=== PATIENT | male | born 1960 | race Caucasian/White ===

== ENCOUNTER 2020-05-07 09:02 | Emergency (ER) | payer OTHER, SELFPAY ==
--- NOTE | 2020-05-07 09:12 | ED.GENADULT ---
HPI - General Adult General Chief complaint: Extremity Injury, Lower Stated complaint: left leg injury Time Seen by Provider: 05/07/20 09:11 Source: patient Mode of arrival: Wheelchair Limitations: no limitations History of Present Illness HPI narrative: Patient is a 59-year-old male who is here for evaluation of a left leg/knee injury. He states that this morning he was walking on some area of gravel/stones. It was somewhat wet because of some light range this morning. He states that he slipped and fell. His knee was bent at the time and all of his weight came down on his bed knee. Since that time he has had very difficult time walking and cannot lift his left leg. Did not hit his head. Review of Systems Constitutional Constitutional: Denies fever(s) Cardiovascular Cardiovascular: Denies chest pain and Denies dyspnea Respiratory Respiratory: Denies dyspnea Musculoskeletal Musculoskeletal: Denies tingling Comments: Left knee pain Integumentary/Breasts Skin/Breast: Denies rash Neurologic Neurologic: Denies tingling Hematologic/Lymphatic On Anticoagulants: No Allergic/Immunologic Allergic/Immunologic: Denies urticaria Patient History Medical History Healthy adult Social History lives independently: Yes Exam Initial Vital Signs Initial Vital Signs: Vital Signs Temperature 97.4 F L 05/07/20 09:16 Pulse Rate 74 05/07/20 09:16 Respiratory Rate 16 05/07/20 09:16 Blood Pressure 178/88 H 05/07/20 09:16 Pulse Oximetry 98 05/07/20 09:16 Const General: cooperative Limitations: mental status not altered Skin Lesions: no lesions Rashes: no rashes Neuro Sensory Exam: no sensory deficits noted Extrem Other: Patient unable to lift his left leg up off the bed. He has a palpable deficit in the quadriceps tendon. Left lower leg is unremarkable. His calf is unremarkable. Procedures Orthopedic Splinting/Casting Injury #1: Side: left Lower Extremity Injury Location: knee Lower Extremity Immobilizer: knee immobilizer Other Orthopedic Equipment: crutches Post splinting neuro exam: no change Post splinting vascular exam: no change Placed by: Nursing Course Orders Ordered: ED Orders 05/07/20 09:11 XR knee LT 3V Stat Vital Signs Vital signs: Vital Signs - 8 hr 05/07/20 09:16 Temperature 97.4 F L Pulse Rate 74 Respiratory Rate 16 Blood Pressure 178/88 H Pulse Oximetry 98 Medical Decision Making Imaging Data Extremity x-ray #1: Radiologist's Impression: [address] [id number] ReportSigned Patient: Steven Cabrera DMR#: [id number]: 1Acct:[id number]/Sex: 59 / MDate of Service: 05/07/20Loc: EDAccession Number: [id number] Procedure: XR knee LT 3V Ordering Provider: Richmond Queen D.O. PROCEDURE: XR KNEE LT 3V INDICATIONS: fall probable quadriceps tendon rupture TECHNIQUE: 3 views of the knee were acquired. COMPARISON: None. FINDINGS: Bones: Small density at the distal quadriceps tendon. Distal tendon appears irregular. No gross fracture. No dislocation. Lateral patellar osteophytes. No suspicious bony lesions. Soft tissues: Small joint effusion. No lipohemarthrosis is identified. No suspicious soft tissue calcifications. IMPRESSION: Small density at the distal quadriceps tendon. This could represent small avulsion fracture fragment with quadriceps tendon rupture or tear. An intra-articular loose body could have a similar appearance. No lipohemarthrosis is identified. Consider further evaluation with MRI. Dictated by: Charles Fagan M.D. on 05/07/2020 at 9:37 Approved by: Charles Fagan M.D. on 05/07/2020 at 9:41 [facility] Narrative Medical decision making narrative: The x-ray does show a potential patellar tendon avulsion fracture. His physical exam is consistent with a quadriceps tendon rupture. I did discuss the case with Dr. Canada with orthopedics who stated that she would be happy to see him in the office. [place] and like to follow-up with orthopedics where he lives. We did discuss the importance of him following up sooner rather than later given the nature of his injury. He is placed in a knee immobilizer and crutches. He was given return precautions and follow-up instructions. He expressed understanding and agreement. Discharge Plan Departure Patient Disposition: Home Clinical Impression: Quadriceps tendon rupture Instructions: How to Use Crutches, How to Use a Knee Immobilizer Activity Restrictions/Additional Instructions: You can walk on your left lower extremity with a knee immobilizer. You can take it off to shower and at night to sleep or if you are sitting on the couch. Use the crutches as needed. It is important that you may contact with an orthopedic provider for follow-up next week as this issue does require surgery within the next 7-10 days. If he cannot make contact with an orthopedic provider contact the scheduled [facility] at the number provided below. Return to the emergency department for any new or worsening symptoms Referrals: Josie Canada MD [Physician] -
[2020-05-07 09:16] VITALS: BP 178/88; PULSE 74; RESP 16; TEMP 36.3; O2SAT 98; BMI 32.5
[2020-05-07 10:40] VITALS: BP 164/78; PULSE 77; RESP 16; O2SAT 97
== END 2020-05-07 10:41 | disposition home or self-care (01) ==
PROVIDERS: Emergency Provider Emergency Medicine
DX: S76.112A Strain of left quadriceps muscle, fascia and tendon, initial encounter (principal); W01.198A Fall on same level from slipping, tripping and stumbling with subsequent striking against other object, initial encounter
CPT/HCPCS: 73562; 99283

== ENCOUNTER → 2023-03-27 06:55 | Outpatient (CLI) | payer OTHER, SELFPAY ==
[2023-03-27 08:03] LABS: Add Manual Diff / Slide Review NO; Basophils Absolute Auto 100 /uL (0-100); Basophils Percent Auto 0.9 % (0-2); Eosinophils Absolute Auto 100 /uL (0-450); Eosinophils Percent Auto 1.6 % (2-4); Hematocrit 40.5 % (41-53); Hemoglobin 13.8 g/dL (13.5-17.5); Lymphocytes Absolute Auto 1600 /uL (1100-4500); Lymphocytes Percent Auto 28.8 % (25-40); Mean Corpuscular Hemoglobin 30.9 PG (26-34); Monocytes Absolute Auto 800 /uL (0-900); Monocytes Percent Auto 13.4 % (3-14); Neutrophils Absolute Auto 3100 /uL (1500-7000); Neutrophils Percent Auto 55.3 % (50-75); Platelet Count 241 X10^3/uL (150-400); Red Blood Cell Count 4.45 X10^6/uL (4.5-5.9); Red Cell Distribution Width 13.3 % (11.6-14.8); White Blood Cell Count 5.7 X10^3/uL (4.5-11.0)
[2023-03-27 08:27] LABS: Alanine Aminotransferase 52 IU/L (<50); Albumin 4.5 g/dL (3.5-5.0); Albumin Globulin Ratio 1.5 (1.0-2.8); Alkaline Phosphatase 47 U/L (38-126); Aspartate Aminotransferase 34 IU/L (17-59); Bilirubin Total 0.7 mg/dL (0.2-1.3); Blood Urea Nitrogen 18 mg/dL (9-20); Calcium 9.1 mg/dL (8.4-10.2); Carbon Dioxide 23 mmol/L (22-32); Chloride 105 mmol/L (98-107); Cholesterol 195 mg/dL (140-199); Estimated Glomerular Filt Rate > 60 mL/min (>60); Glucose 122 mg/dL (80-110); HDL Cholesterol 37 mg/dL (40-60); HEMOLYSIS < 15 (0-50); LDL Cholesterol Calculated 138 mg/dL (<100); Potassium 4.1 mmol/L (3.4-5.1); Sodium 138 mmol/L (137-145); Total Protein 7.5 g/dL (6.3-8.2); Triglycerides 99 mg/dL (35-150)
[2023-03-27 08:59] LABS: Prostate Specific Antigen 0.579 ng/mL (0.10-4.00)
[2023-03-27 09:19] LABS: HIV 1 & 2 Ab/Ag 4th Gen Combo NEGATIVE (NEGATIVE); Hep C Virus Ab w/Reflex Quant NEGATIVE s/c (NEGATIVE)
[2023-04-03 08:53] LABS: Percent Free Testosterone 3.57 % (1.50-4.20); Testosterone Free 11.72 ng/dL (5.00-21.00); Testosterone Total 328.3 ng/dL (264.0-916.0)
== END ==
PROVIDERS: PCP Family Medicine; Referring Provider Family Medicine; Visit Provider Family Medicine
DX: Z11.59 Encounter for screening for other viral diseases (principal); Z13.1 Encounter for screening for diabetes mellitus; Z11.4 Encounter for screening for human immunodeficiency virus [HIV]; I25.10 Atherosclerotic heart disease of native coronary artery without angina pectoris; G47.30 Sleep apnea, unspecified; R79.89 Other specified abnormal findings of blood chemistry; Z12.5 Encounter for screening for malignant neoplasm of prostate
CPT/HCPCS: 36415; 80053; 80061; 83036; 84153; 84402; 84403; 85025; 86803; 87389

== ENCOUNTER → 2023-10-19 07:06 | Outpatient (CLI) | payer OTHER, SELFPAY ==
[2023-10-19 08:15] LABS: Add Manual Diff / Slide Review NO; Basophils Absolute Auto 100 /uL (0-100); Basophils Percent Auto 1.3 % (0-2); Eosinophils Absolute Auto 200 /uL (0-450); Eosinophils Percent Auto 2.9 % (2-4); Hematocrit 39.8 % (41-53); Hemoglobin 13.8 g/dL (13.5-17.5); Lymphocytes Absolute Auto 1700 /uL (1100-4500); Lymphocytes Percent Auto 30.5 % (25-40); Mean Corpuscular HGB Conc 34.7 % (30-36); Mean Corpuscular Hemoglobin 31.5 PG (26-34); Mean Corpuscular Volume 90.8 fL (80-100); Monocytes Absolute Auto 700 /uL (0-900); Monocytes Percent Auto 12.3 % (3-14); Neutrophils Absolute Auto 2900 /uL (1500-7000); Platelet Count 236 X10^3/uL (150-400); Red Blood Cell Count 4.38 X10^6/uL (4.5-5.9); White Blood Cell Count 5.5 X10^3/uL (4.5-11.0)
[2023-10-19 08:28] LABS: HEMOLYSIS < 15 (0-50)
[2023-10-19 08:34] LABS: Iron 138 ug/dL (49-181)
[2023-10-19 08:36] LABS: Alanine Aminotransferase 36 IU/L (<50); Albumin 4.2 g/dL (3.5-5.0); Albumin Globulin Ratio 1.5 (1.0-2.8); Alkaline Phosphatase 42 U/L (38-126); Aspartate Aminotransferase 29 IU/L (17-59); BUN Creatinine Ratio 25.7 (6-22); Bilirubin Total 0.7 mg/dL (0.2-1.3); Blood Urea Nitrogen 18 mg/dL (9-20); Calcium 9.3 mg/dL (8.4-10.2); Carbon Dioxide 24 mmol/L (22-32); Chloride 104 mmol/L (98-107); Cholesterol 196 mg/dL (140-199); Estimated Glomerular Filt Rate > 60 mL/min (>60); Globulin 2.8 g/dL (1.7-4.1); Glucose 131 mg/dL (80-110); HDL Cholesterol 40 mg/dL (40-60); HEMOLYSIS < 15 (0-50); LDL Cholesterol Calculated 124 mg/dL (<100); Potassium 4.4 mmol/L (3.4-5.1); Sodium 135 mmol/L (137-145); Triglycerides 162 mg/dL (35-150)
[2023-10-19 08:47] LABS: Percent Iron Saturation 46 % (20-50); Total Iron Binding Capacity 301 ug/dL (261-462); Transferrin 247 mg/dL (206-381)
[2023-10-19 08:50] LABS: Vitamin D 25 Hydroxy (D3) 35.2 ng/mL (30.0-100.0)
[2023-10-19 08:51] LABS: Hemoglobin A1C% w Est Avg Glu 6.1 % (4.0-6.0)
[2023-10-19 09:08] LABS: Ferritin 138 ng/mL (18-464)
[2023-10-19 10:22] LABS: Vitamin B12 382 pg/mL (239-931)
== END ==
PROVIDERS: PCP Family Medicine; Referring Provider Family Medicine; Visit Provider Family Medicine
DX: Z13.228 Encounter for screening for other metabolic disorders (principal); I25.10 Atherosclerotic heart disease of native coronary artery without angina pectoris; E78.5 Hyperlipidemia, unspecified; E66.9 Obesity, unspecified; R73.03 Prediabetes; R79.89 Other specified abnormal findings of blood chemistry; Z13.21 Encounter for screening for nutritional disorder; R53.83 Other fatigue
CPT/HCPCS: 36415; 80053; 80061; 82306; 82607; 82728; 83036; 83540; 83550; 84402; 84403; 85025

== ENCOUNTER → 2024-07-31 15:02 | Outpatient (CLI) | payer OTHER, SELFPAY | PROVIDERS: PCP Family Medicine; Referring Provider Family Medicine; Visit Provider Family Medicine | DX: R79.89 Other specified abnormal findings of blood chemistry (principal) | CPT/HCPCS: 36415; 84402; 84403 ==

== ENCOUNTER → 2024-09-17 10:51 | Outpatient (CLI) | payer BC, SELFPAY | PROVIDERS: PCP Family Medicine; Referring Provider Family Medicine; Visit Provider Family Medicine | DX: R79.89 Other specified abnormal findings of blood chemistry (principal) | CPT/HCPCS: 36415; 84402; 84403 ==

== ENCOUNTER → 2024-10-29 06:47 | Outpatient (CLI) | payer BC, SELFPAY ==
[2024-10-29 07:39] LABS: Hematocrit 41.3 % (41-53); Hemoglobin 14.3 g/dL (13.5-17.5); Mean Corpuscular HGB Conc 34.8 % (30-36); Mean Corpuscular Hemoglobin 31.1 PG (26-34); Mean Corpuscular Volume 89.6 fL (80-100); Platelet Count 225 X10^3/uL (150-400)
[2024-10-29 07:54] LABS: Hemoglobin A1C% w Est Avg Glu 6.4 % (4.0-6.0)
[2024-10-29 08:13] LABS: Alanine Aminotransferase 43 IU/L (<50); Albumin 4.7 g/dL (3.5-5.0); Albumin Globulin Ratio 1.7 (1.0-2.8); Alkaline Phosphatase 45 U/L (38-126); Blood Urea Nitrogen 17 mg/dL (9-20); Calcium 9.4 mg/dL (8.4-10.2); Carbon Dioxide 24 mmol/L (22-32); Chloride 103 mmol/L (98-107); Cholesterol 201 mg/dL (140-199); Estimated Glomerular Filt Rate > 60 mL/min (>60); Globulin 2.7 g/dL (1.7-4.1); Glucose 142 mg/dL (70-99); HDL Cholesterol 45 mg/dL (40-60); HEMOLYSIS < 15 (0-50); Potassium 4.5 mmol/L (3.4-5.1); Sodium 138 mmol/L (137-145); Total Protein 7.4 g/dL (6.3-8.2); Triglycerides 140 mg/dL (35-150)
[2024-10-31 18:11] LABS: ANA Screen, IFA Negative (.)
== END ==
PROVIDERS: PCP Family Medicine; Referring Provider Family Medicine; Visit Provider Family Medicine
DX: Z12.5 Encounter for screening for malignant neoplasm of prostate (principal); E78.5 Hyperlipidemia, unspecified; M25.50 Pain in unspecified joint; M45.9 Ankylosing spondylitis of unspecified sites in spine; R73.03 Prediabetes; R79.89 Other specified abnormal findings of blood chemistry
CPT/HCPCS: 36415; 80053; 80061; 83036; 84402; 84403; 85027; 85651; 86038; 86140; 86200; 86430; G0103